=== PATIENT | female | born 1955 | race Caucasian/White ===

== ENCOUNTER 2024-01-19 11:31 | Outpatient (REF) | payer MEDICARE, SELFPAY ==
--- NOTE | 2024-01-19 10:00 | PAPFT_PTH ---
PATIENT: Paloma Hager LOC: [facility] U#:[id number] AGE/SX: 68/F ROOM: RE01/19/[address]: Barbie Mcleod MD : 1955 BED: DIS: 01/19/2024 SPEC #: [id number] RECD: 01/19/24 13:15 STATUS: JOSH REQ #: [id number] KEYA: 01/19/24 10:[address]: Barbie Mcleod DEPT: [facility] Cytology RECD BY: Jinny Howard ENTERED: 01/19/24 13:16 SP TYPE: PAPFT OTHR DR: Unknown,Unknown Tissues: 1 - CX/ENDOCX FOR PAP SMEARS Procedures: PAP THIN PREP/[facility] Screening HPV DNA PROBE Comments: [id number]
== END 2024-01-19 11:32 | disposition home or self-care (01) ==
LOC: LBN 11:31
PROVIDERS: Visit Provider Obstetrics & Gynecology
DX: Z11.51 Encounter for screening for human papillomavirus (HPV) (principal); Z01.419 Encounter for gynecological examination (general) (routine) without abnormal findings
CPT/HCPCS: 88142; 87624